=== PATIENT | male | born 2000 | race Caucasian/White ===

== ENCOUNTER 2025-08-04 06:40 | Day surgery (SDC) | payer BC ==
[2025-08-02 10:47] LABS: Anion Gap 8.1 mEq/L (5.0-15.0); BUN Blood Urea Nitrogen 11.0 mg/dL (7-18); Glucose Level 87.0 mg/dL (74-106); Potassium 4.1 mEq/L (3.5-5.1)
[2025-08-04] MEDS: Ringers Lactate 1,000 ML IV ONE (07:00)
[2025-08-04] MEDS ORDERED: MIDAZOLAM HCL 2 MG/2 ML INJ ONE (07:06)
[2025-08-04] MEDS ORDERED: FENTANYL CITR 100 MCG/2 ML ONE (07:06)
[2025-08-04] MEDS ORDERED: LIDOCAINE 1% MPF 5 ML VIAL ONE (07:09)
[2025-08-04] MEDS ORDERED: SUCCINYLCHOLINE 200 MG/10 ML 200 MG/10 ML SYR IV ONE (07:10)
[2025-08-04] MEDS ORDERED: ROCURONIUM 50 MG/5 ML VIAL IV ONE (07:10)
[2025-08-04] MEDS ORDERED: DEXMEDETOMIDINE HCL 200 MCG/2 ML VIAL ONE (07:42)
[2025-08-04] MEDS ORDERED: GLYCOPYRROLATE 0.2 MG/ML SYR ONE (08:12)
[2025-08-04] MEDS ORDERED: ONDANSETRON 4 MG/2 ML VIAL ONE (08:17)
[2025-08-04] MEDS: BUPIVACAINE 0.5% PF 10 ML VIAL ONE (08:22)
[2025-08-04 09:15] VITALS: O2SAT 100
[2025-08-04] MEDS: ACETAMINOPHEN 160 MG/5 ML UCUP ONE (09:35)
[2025-08-04 10:47] VITALS: BP 137/91; TEMP 97
--- NOTE | 2025-08-04 19:54 | OP ---
Date of Procedure: 08/04/2025 Surgeon: Liliana Klein Preoperative Diagnosis: Chronic tonsillitis. Postoperative Diagnosis: Chronic tonsillitis. Procedure: Tonsillectomy. Anesthesia: General endotracheal anesthesia was administered. I also infiltrated approximately 0.5% Marcaine without epinephrine into bilateral tonsillar fossa, soft palate, and uvula. Estimated Blood Loss: Less than 5 mL. Specimens: Bilateral tonsils submitted to Pathology. Findings: Bilateral exudative tonsils 3/4; no evidence of adenoidal hypertrophy. Complications: None. Disposition: Stable. The patient tolerated the procedure well. Indications For Procedure: The patient is a pleasant 25-year-old male with a longstanding chronic hi story of tonsillitis and tonsil stones causing chronic throat pain. His condition has been refractor y to outpatient oral antibiotics. These were indications to bring the patient to operative suite for the above-mentioned procedure. He understood, all questions were answered. Risks versus benefits a nd complications were explained in detail, and the consent form was signed, which was placed on the c connell. Description Of Procedure: The patient was transferred from the preoperative holding area to the oper ative suite by Department of Anesthesia, placed on the operating table supine, sedated and intubated in normal fashion. Table was rotated 90 degrees, and a shoulder roll was placed. Head and eyes were covered with sterile blue towel, and a moist Ray-Sergio placed over the upper lip for protection. A Mc Avon retractor was introduced to the right oral commissure and directed along the endotracheal tube a nd suspended from the Clancy stand. The right tonsil was removed by retracting the superior pole with a straight Allis clamp, and I disse cted through the mucosa down the peritonsillar fascial plane with monopolar electrocautery on the set ting of 20 for coagulation and 1 of cutting. The inferior pole was amputated with suction Bovie. Ne xt, the left tonsil was removed by retracting the superior pole with a straight Allis clamp, and I di ssected through the mucosa down the peritonsillar fascial plane with monopolar electrocautery and the n, the inferior pole was amputated with suction Bovie. Saline irrigation was introduced through the oral cavity and removed with suction Bovie. I retracted the soft palate forward with a Sylvie retracto r to visualize the adenoid cavity and there was no evidence of adenoidal tissue. I then infiltrated bilateral tonsillar fossa, soft palate, and uvula with approximately 10 mL of 0.5% Marcaine without e pinephrine. All areas were checked for hemostasis. Hemostasis was achieved with suction Bovie. I gloria higgins introduced a flexible orogastric tube into the esophagus and stomach, and all fluid contents were removed. The patient was then de-suspended from the Hamilton stand. McIvor retractor was removed. The patient's jaw was checked and found to be in proper alignment. He was transferred back to [facility] in stable condition and subsequently transferred to PACU and discharged home on analg esic medication and will follow up in 1-2 weeks or sooner if needed. MARY BETH/MALVIN Voice ID: [id number] Report ID: [id number]
== END 2025-08-04 10:15 | disposition home or self-care (01) ==
LOC: OR 06:40
PROVIDERS: ATTEND Otolaryngology Facial Plastic Surgery
PROC: 0CTPXZZ Resection of Tonsils, External Approach (ICD-10-PCS; principal; 2025-08-04 08:00)
DX: J35.01 Chronic tonsillitis (principal); J31.2 Chronic pharyngitis
CPT/HCPCS: 36415; 80048; 88304; 93005; J0330; J2003; J2250; J2405; J2704; J3010; J7120